=== PATIENT | female | born 1980 | race Caucasian/White ===

== ENCOUNTER 2017-05-24 17:11 | Emergency (ER) | payer OTHER ==
[~2017-05-24] VITALS: Ht 165.1 cm; Wt 85.9 kg
[2017-05-24 17:13] VITALS: BP 198/100; PULSE 107; RESP 20; TEMP 98.8; O2SAT 95
--- NOTE | 2017-05-24 18:02 | RADRPT ---
EXAM DATE/TIME: 05/24/2017 17:51 [place] COMPARISON: No previous studies available for comparison. INDICATIONS : Cough and congestion. MEDICAL HISTORY : None. SURGICAL HISTORY : None. ENCOUNTER: Initial ACUITY: 1 week PAIN SCORE: 6/10 LOCATION: Bilateral chest FINDINGS: PA and lateral views of the chest demonstrate the lungs to be symmetrically aerated without evidence of mass, infiltrate or effusion. The cardiomediastinal contours are unremarkable. Osseous structure s are intact. CONCLUSION: No acute disease. Jordon Brooks Jr., MD on May 24, 2017 at 17:59 Board Certified Radiologist. This report was verified electronically.
[2017-05-24 18:12] LABS: AUTOMATED NEUTROPHIL # 2.9 TH/MM3 (1.8-7.7); BASOPHIL % 0.7 % (0.0-2.0); EOSINOPHIL # 0.1 TH/MM3 (0-0.4); EOSINOPHIL % 1.4 % (0.0-4.0); HEMATOCRIT 42.4 % (35.0-46.0); LYMPH % 25.9 % (9.0-44.0); LYMPHOCYTE # 1.1 TH/MM3 (1.0-4.8); MEAN CELL VOLUME 92.2 FL (80.0-100.0); MEAN CORPUSCULAR HEMOGLOBIN 32.7 PG (27.0-34.0); MEAN CORPUSCULAR HGB CONC 35.5 % (32.0-36.0); MEAN PLATELET VOLUME 8.2 FL (7.0-11.0); MONO % 6.5 % (0.0-8.0); MONOCYTE # 0.3 TH/MM3 (0-0.9); NEUT % 65.5 % (16.0-70.0); PLATELET COUNT 197 TH/MM3 (150-450); RED CELL DISTRIBUTION WIDTH 14.9 % (11.6-17.2); WHITE BLOOD COUNT 4.4 TH/MM3 (4.0-11.0)
[2017-05-24 18:15] LABS: BACTERIA, URINE MANY /hpf; BILIRUBIN, URINE NEG (NEG); BLOOD, URINE LARGE (NEG); GLUCOSE,URINE NEG (NEG); KETONE, URINE TRACE mg/dL (NEG); NITRITE,URINE NEG (NEG); SQUAMOUS EPITHELIAL CELL URINE 14 /hpf (0-5); URINE LEUKOCYTE ESTERASE LARGE (NEG)
[2017-05-24 18:20] LABS: URINE COLOR RED (YELLW/STRAW)
[2017-05-24 18:29] LABS: ALBUMIN 3.9 GM/DL (3.4-5.0); AST (GOT) 41 U/L (15-37); BICARBONATE 26.8 MEQ/L (21.0-32.0); BLOOD UREA NITROGEN 5 MG/DL (7-18); CALCIUM 8.5 MG/DL (8.5-10.1); CHLORIDE 99 MEQ/L (98-107); GLOMERULAR FILTRATION RATE 80 ML/MIN (>89); GLUCOSE,RANDOM 92 MG/DL (74-106); LIPASE 158 U/L (73-393); SODIUM (NA) 133 MEQ/L (136-145)
[2017-05-24 18:30] LABS: ALT (GPT) 48 U/L (10-53)
[2017-05-24 18:32] LABS: ALKALINE PHOSPHATASE 60 U/L (45-117); TOTAL BILIRUBIN ADULT 0.4 MG/DL (0.2-1.0); TOTAL PROTEIN 7.6 GM/DL (6.4-8.2)
[2017-05-24 18:39] VITALS: BP 123/81; PULSE 99; RESP 17; O2SAT 96
[2017-05-24] MEDS ORDERED: SODIUM CHLOR 0.9% 1000 ML INJ 1,000 ML IV SCH (18:41)
[2017-05-24] MEDS ORDERED: KETOROLAC TROMETHAMINE 30 MG/ML (IVP) VIAL IV PUSH ONE (18:45)
[2017-05-24] MEDS ORDERED: ONDANSETRON HCL 4 MG/2 ML VIAL IVP ONE (18:45)
[2017-05-24] MEDS ORDERED: LEVOFLOXACIN 500 MG TAB PO ONE (18:45)
--- NOTE | 2017-05-24 18:46 | PD ---
HPI Chief Complaint: Cold / Flu Symptoms Time Seen by Provider: 18:41 Travel History International Travel<30 days: No Contact w/Intl Traveler<30days: No Traveled to known affect area: No History of Present Illness HPI 37-year-old female here for evaluation of generalized malaise, flulike symptoms , cough, sore throat, nausea, vomiting, diarrhea. Symptoms have been going on for about a week. She is currently on her menstrual period and has some mild abdominal cramping from this. Cough is nonproductive. She smokes about a pack of cigarettes daily. She feels slightly short of breath. States that she has been able to tolerate clear liquids, but is unable to eat solid foods. Labs and chest x-ray were performed in triage and show that the patient is positive for influenza A with unremarkable CBC and CMP as well as chest x-ray that shows no acute cardio pulmonary disease. PFSH Past Medical History Bipolar Disorder: Yes Cancer: No Cardiovascular Problems: No Diabetes: No Diminished Hearing: No Endocrine: No Gastrointestinal Disorders: No Genitourinary: No Hepatitis: No Hiatal Hernia: No Immune Disorder: No Musculoskeletal: No Neurologic: No Psychiatric: No Reproductive: No Respiratory: No Immunizations Current: No Schizophrenia: Yes (PERSONALITY DISORDERS. ) Thyroid Disease: No Tetanus Vaccination: < 5 Years ?: Not LMP: on now Past Surgical History AICD: No Section: Yes (X2) Gynecologic Surgery: Yes (2 C SECTION) Joint Replacement: No Pacemaker: No Other Surgery: Yes (BREAST REDUCTION AND 1 IMPLANT) Social History Alcohol Use: Yes (OCC) Tobacco Use: Yes (1 PPD) Substance Use: Yes (MARIJUANA) Allergies-Medications (Allergen,Severity, Reaction): Coded Allergies: cefaclor (Unverified Allergy, Severe, SWELLING, 12/21/16) sulfamethoxazole (Unverified Allergy, Mild, 12/21/16) patient states she is not allergic to bactrim trimethoprim (Unverified Allergy, Mild, 12/21/16) patient states she is not allergic to bactrim Reported Meds & Prescriptions Reported Meds & Active Scripts Active No Active Prescriptions or Reported Medications Review of Systems Except as stated in HPI: all other systems reviewed are Neg Physical Exam Narrative GENERAL: Well-developed, well-nourished, no apparent distress. SKIN: Focused skin assessment warm/dry. No rash. HEAD: Atraumatic. Normocephalic. EYES: Pupils equal and round. No scleral icterus. No injection or drainage. ENT: No nasal bleeding or discharge. Mucous membranes pink and moist. NECK: Trachea midline. No JVD. CARDIOVASCULAR: Regular rate and rhythm. RESPIRATORY: No accessory muscle use. Clear to auscultation. Breath sounds equal bilaterally. GASTROINTESTINAL: Abdomen soft, non-tender, nondistended. MUSCULOSKELETAL: No obvious deformities. No clubbing. No cyanosis. No edema. NEUROLOGICAL: Awake and alert. No obvious cranial nerve deficits. Motor grossly within normal limits. Normal speech. PSYCHIATRIC: Appropriate mood and affect; insight and judgment normal. Data Data Last Documented VS Vital Signs Date Time Temp Pulse Resp B/P (MAP) Pulse Ox O2 Delivery O2 Flow Rate FiO2 05/24/17 18:39 99 17 123/81 (95) 96 Room Air 05/24/17 17:13 98.8 Orders Orders Complete Blood Count With Diff (05/24/17 17:27) Comprehensive Metabolic Panel (05/24/17 17:27) Lipase (05/24/17 17:27) Urinalysis - C+S If Indicated (05/24/17 17:27) Ed Urine Pregnancytest Poc (05/24/17 17:27) Influenzae A/B Antigen (05/24/17 17:27) Chest, Pa & Lat (05/24/17 ) Urine Culture (05/24/17 17:55) Ondansetron Inj (Zofran Inj) (05/24/17 18:45) Sodium Chlor 0.9% 1000 Ml Inj (Ns 1000 M (05/24/17 18:41) Levofloxacin (Levaquin) (05/24/17 18:45) Ketorolac Inj (Toradol Inj) (05/24/17 18:45) Albuterol-Ipratropium Neb (Duoneb Neb) (05/24/17 18:45) Oseltamivir (Tamiflu) (05/24/17 19:15) Labs Laboratory Tests Test 05/24/17 17:55 White Blood Count 4.4 TH/MM3 Red Blood Count 4.60 MIL/MM3 Hemoglobin 15.0 GM/DL Hematocrit 42.4 % Mean Corpuscular Volume 92.2 FL Mean Corpuscular Hemoglobin 32.7 PG Mean Corpuscular Hemoglobin Concent 35.5 % Red Cell Distribution Width 14.9 % Platelet Count 197 TH/MM3 Mean Platelet Volume 8.2 FL Neutrophils (%) (Auto) 65.5 % Lymphocytes (%) (Auto) 25.9 % Monocytes (%) (Auto) 6.5 % Eosinophils (%) (Auto) 1.4 % Basophils (%) (Auto) 0.7 % Neutrophils # (Auto) 2.9 TH/MM3 Lymphocytes # (Auto) 1.1 TH/MM3 Monocytes # (Auto) 0.3 TH/MM3 Eosinophils # (Auto) 0.1 TH/MM3 Basophils # (Auto) 0.0 TH/MM3 CBC Comment DIFF FINAL Differential Comment Urine Color RED Urine Turbidity HAZY Urine pH 6.0 Urine Specific [place] 1.008 Urine Protein 100 mg/dL Urine Glucose (UA) NEG mg/dL Urine Ketones TRACE mg/dL Urine Occult Blood LARGE Urine Nitrite NEG Urine Bilirubin NEG Urine Urobilinogen LESS THAN 2.0 MG/DL Urine Leukocyte Esterase LARGE Urine RBC /hpf Urine WBC 71 /hpf Urine Squamous Epithelial Cells 14 /hpf Urine Bacteria MANY /hpf Microscopic Urinalysis Comment CULTURE INDICATED Blood Urea Nitrogen 5 MG/DL Creatinine 0.80 MG/DL Random Glucose 92 MG/DL Total Protein 7.6 GM/DL Albumin 3.9 GM/DL Calcium Level 8.5 MG/DL Alkaline Phosphatase 60 U/L Aspartate Amino Transf (AST/SGOT) 41 U/L Alanine Aminotransferase (ALT/SGPT) 48 U/L Total Bilirubin 0.4 MG/DL Sodium Level 133 MEQ/L Potassium Level 3.5 MEQ/L Chloride Level 99 MEQ/L Carbon Dioxide Level 26.8 MEQ/L Anion Gap 7 MEQ/L Estimat Glomerular Filtration Rate 80 ML/MIN Lipase 158 U/L [facility] Medical Decision Making Medical Screen Exam Complete: Yes Emergency Medical Condition: Yes Medical Record Reviewed: Yes Differential Diagnosis Influenza, URI, viral illness, pneumonia, bronchitis, dehydration, gastroenteritis Narrative Course Vital signs reviewed. CBC is unremarkable. CMP is unremarkable. Lipase is 158. UA: Hazy red urine, 100 protein, large occult blood, large leukocyte esterase, innumerable RBCs, 71 wbc's, many bacteria. Influenza A+. Chest x-ray: No acute disease. Patient was given a liter of normal saline IV, IV Toradol, 3 DuoNeb treatments, and on reassessment she feels improved. Patient may have underlying bronchitis as well as influenza A, and was given Levaquin as well as a dose of Tamiflu. She feels well enough to be discharged home and was advised to stay hydrated with plenty of fluids into keep fever under control with Tylenol and ibuprofen. She was advised to follow-up with a primary care physician this week and informed on when to return to the emergency department. She verbalizes understanding and agreement with plan. Diagnosis Primary Impression: Influenza A Additional Impressions: Bronchitis UTI (urinary tract infection) Qualified Codes: N39.0 - Urinary tract infection, site not specified; R31.9 - Hematuria, unspecified Referrals: [facility] 3 days Additional Instructions: Take medications as prescribed. Follow-up with a primary care physician this week. Stay hydrated with plenty of fluids. Keep fever under control with Tylenol and ibuprofen. Return to the emergency department for worsening symptoms or any other concerns. Scripts Ondansetron Odt (Zofran Odt) 4 Mg Tab 4 MG SL Q8HR Y for Nausea/Vomiting, #20 TAB 0 Refills Prov: Helder Garcia MD 05/24/17 Albuterol 18 GM Inh (Ventolin Hfa 18 GM Inh) 90 Mcg/Act Aer 2 PUFF INH Q6H Y for SHORTNESS OF BREATH, #1 INHALER 0 Refills Prov: Helder Garcia MD 05/24/17 Oseltamivir (Tamiflu) 75 Mg Cap 75 MG PO BID for Mgmt Viral Infection for 5 Days, #10 CAP 0 Refills Prov: Helder Garcia MD 05/24/17 Levofloxacin (Levaquin) 500 Mg Tablet 500 MG PO DAILY for Infection for 5 Days, #5 TAB 0 Refills Prov: Helder Garcia MD 05/24/17 Disposition: 01 DISCHARGE HOME Condition: Stable Helder Garcia MD May 24, 2017 18:46
[2017-05-24] MEDS ORDERED: OSELTAMIVIR PHOSPHATE 75 MG CAP PO ONE (19:15)
[2017-05-24] MEDS: RESP: ALBUTEROL 2.5 MG/IPRATROPIUM 0.5 MG NEB (SCH) INH ×2 (19:41→19:43)
[2017-05-24] MEDS ORDERED: VENTAER INH (20:03)
[2017-05-24] MEDS ORDERED: ZOFR4TAB3 SL (20:03)
[2017-05-24] MEDS ORDERED: OSEL75 PO (20:03)
[2017-05-24] MEDS ORDERED: LEVA500T33 PO (20:03)
[2017-05-24 20:12] VITALS: BP 130/70
== END 2017-05-24 20:13 | disposition home or self-care (01) ==
LOC: NEPD 17:11
DX: J09.X2 Influenza due to identified novel influenza A virus with other respiratory manifestations (principal); J40 Bronchitis, not specified as acute or chronic; N39.0 Urinary tract infection, site not specified; R11.2 Nausea with vomiting, unspecified; R19.7 Diarrhea, unspecified; F31.9 Bipolar disorder, unspecified; F20.9 Schizophrenia, unspecified; F17.210 Nicotine dependence, cigarettes, uncomplicated
CPT/HCPCS: 71046; 80053; 81001; 83690; 84703; 85025; 87086; 87804; 94640; 94664; 96361; 96374; 96375; 99284; J1885; J2405; J7030

== ENCOUNTER 2017-09-14 09:53 | Emergency (ER) | payer SELFPAY ==
[~2017-09-14] VITALS: Ht 165.1 cm; Wt 87.2 kg
[~2017-09-14 09:53] MED LIST: LEVA500T33 PO; OSEL75 PO; VENTAER INH; ZOFR4TAB3 SL
[2017-09-14 10:00] VITALS: BP 146/91; PULSE 95; RESP 18; TEMP 97.9; O2SAT 98
[2017-09-14] MEDS ORDERED: MUPI2OIN TOPICAL (10:51)
[2017-09-14] MEDS ORDERED: CEPH-459 PO (10:51)
--- NOTE | 2017-09-14 10:51 | PD ---
HPI Chief Complaint: Skin Problem Time Seen by Provider: 10:21 Travel History International Travel<30 days: No Contact w/Intl Traveler<30days: No Traveled to known affect area: No History of Present Illness HPI 37-year-old female presents emergency department for evaluation of scabs to her scalp that are extending into her neck and her back and arms for 3 weeks. Patient states that the scabs are pruritic and sometimes painful. Says she has good hygiene has not had any travel. Denies new soaps or lotions. Denies any exposures to others with the same condition. No history of the scabs. Denies fevers or chills. Denies chronic medical issues or medication use except for mental health problems. Patient says she drinks a liter of vodka per day and is concerned about any medication that I gave her today. She denies stiff neck , chest pain, shortness of breath. Immunizations are up-to-date. PFSH Past Medical History Bipolar Disorder: Yes Cancer: No Cardiovascular Problems: No Diabetes: No Diminished Hearing: No Endocrine: No Gastrointestinal Disorders: No Genitourinary: No Hepatitis: No Hiatal Hernia: No Hypertension: No Immune Disorder: No Musculoskeletal: No Neurologic: No Psychiatric: No Reproductive: No Respiratory: No Immunizations Current: No Schizophrenia: Yes (PERSONALITY DISORDERS. ) Thyroid Disease: No Tetanus Vaccination: < 5 Years ?: Not LMP: 08/2017 Past Surgical History AICD: No Section: Yes (X2) Gynecologic Surgery: Yes (2 C SECTION) Joint Replacement: No Pacemaker: No Other Surgery: Yes (BREAST REDUCTION AND 1 IMPLANT) Social History Alcohol Use: Yes (OCC) Tobacco Use: Yes (1 PPD) Substance Use: Yes (MARIJUANA) Allergies-Medications (Allergen,Severity, Reaction): Coded Allergies: cefaclor (Unverified Allergy, Severe, SWELLING, 09/14/17) sulfamethoxazole (Unverified Allergy, Mild, 09/14/17) patient states she is not allergic to bactrim trimethoprim (Unverified Allergy, Mild, 09/14/17) patient states she is not allergic to bactrim Reported Meds & Prescriptions Reported Meds & Active Scripts Active Keflex (Cephalexin) 250 Mg Cap 250 Mg PO Q6H 7 Days Mupirocin Topical (Mupirocin) 2 % Oint 1 Applic TOPICAL BID 7 Days Review of Systems Except as stated in HPI: all other systems reviewed are Neg Physical Exam Narrative GENERAL: Well-nourished, well-developed patient. SKIN: Focused skin assessment warm/dry. Scalp-single 1 cm round ulcerated lesions with clear exudate about midline parietal region, multiple scattered 3-5 mm ulcerations along the posterior upper neck, scattered similar lesions along arm and upper back. Lesion on right upper eyelid measuring 3mm round. note that these do cross the midline. There is no surrounding edema or erythema. HEAD: Normocephalic. EYES: No scleral icterus. No injection or drainage. NECK: Supple, trachea midline. No JVD or lymphadenopathy. CARDIOVASCULAR: Regular rate and rhythm without murmurs, gallops, or rubs. RESPIRATORY: Breath sounds equal bilaterally. No accessory muscle use. GASTROINTESTINAL: Abdomen soft, non-tender, nondistended. No CVA tenderness MUSCULOSKELETAL: No cyanosis, or edema. BACK: Nontender without obvious deformity. No CVA tenderness. Data Data Last Documented VS Vital Signs Date Time Temp Pulse Resp B/P (MAP) Pulse Ox O2 Delivery O2 Flow Rate FiO2 09/14/17 10:00 97.9 95 18 146/91 (109) 98 Orders Orders Ed Discharge Order (09/14/17 10:51) MDM Medical Decision Making Medical Screen Exam Complete: Yes Emergency Medical Condition: Yes Differential Diagnosis Impetigo, cellulitis, erysipelas, herpes zoster Narrative Course 37-year-old female presents emergency room for evaluation of scabs in her scalp , neck, upper back been present for several weeks. Patient states that the lesions are spreading so she decided to come to the emergency department today for evaluation. She denies fevers or chills. Denies any recent contacts, soaps , lotions. Vital signs stable. Physical exam findings consistent with impetigo without lymph angiopathic spread , edema, surrounding erythema. Patient be discharged with Keflex and mupirocin. She advised follow-up with her primary care physician. Consider dermatology if lesions persist or worsen. Diagnosis Primary Impression: Impetigo Referrals: [facility] Additional Instructions: Follow up with your primary care physician within 2-3 days. Keep area clean and dry. Sure good hygiene. Avoid contact with others as this may be contagious. Use medications as prescribed. Consider follow-up with a human resources director if lesions persist. If you developed increased redness, swelling, or pain return to the emergency department as this could be a sign of infection. Scripts Cephalexin (Keflex) 250 Mg Cap 250 MG PO Q6H for Infection for 7 Days, #28 CAP 0 Refills Prov: Cornel Trammell MD 09/14/17 Mupirocin Topical (Mupirocin Topical) 2 % Oint 1 APPLIC TOPICAL BID for Mgmt Bacterial Infection for 7 Days, #1 TUBE 0 Refills Prov: Cornel Trammell MD 09/14/17 Disposition: 01 DISCHARGE HOME Condition: Stable Jeannine Sparks September 14, 2017 10:51
== END 2017-09-14 11:18 | disposition home or self-care (01) ==
LOC: PHEFT 09:53
DX: L01.00 Impetigo, unspecified (principal); F31.9 Bipolar disorder, unspecified; F20.9 Schizophrenia, unspecified; F17.200 Nicotine dependence, unspecified, uncomplicated; F12.90 Cannabis use, unspecified, uncomplicated; Z88.2 Allergy status to sulfonamides; Z88.8 Allergy status to other drugs, medicaments and biological substances
CPT/HCPCS: 99283